=== PATIENT | female | born 1955 | race Hispanic/Latino ===

== ENCOUNTER → 2020-04-25 | Outpatient (CLI) | payer MEDICARE ==
--- NOTE | 2020-04-25 11:04 | Diagnostic Imaging Report ---
EXAM: [place] BARIUM ENEMA AIR AND BARIUM DOUBLE CONTRAST INDICATION: Incomplete colonoscopy. Tortuous sigmoid colon. COMPARISON: None available. TECHNIQUE: After insertion of the rectal tube barium was administered until the contrast reached the mid transverse colon. The barium within drain. Air was then manually insufflated in multiple different positions to allow for the double contrast evaluation of the lower GI tract. FINDINGS: MANAGER OF EXHIBITIONS AND COLLECTIONS: The bowel gas pattern is non-obstructive. RECTUM: Limited evaluation due to redundant nature. No definite large mucosal abnormality is noted. SIGMOID COLON: Difficult to evaluate due to significant redundancy and overlapping areas of contrast. ASCENDING, TRANSVERSE, AND DESCENDING COLON: Normally distensible with normal contours and mucosal pattern. Multifocal diverticuli of the sigmoid colon and distal descending colon are noted. A few scattered diverticula are also identified in the ascending colon and transverse colon. CECUM AND APPENDIX: Spot images were obtained. Normally distensible and demonstrates normal contours and mucosal pattern. Appendix is not confidently visualized however there is mild reflux into the terminal ileum Fluoroscopy Time: 5.82 minutes Radiation dose: 87.2 mGy IMPRESSION: 1. Diffuse colonic diverticulosis, most prominent at the sigmoid colon. 2. Significant redundancy within the sigmoid colon and rectum limiting evaluation. 3. No large mucosal mass within the ascending, transverse or descending colon. No ulceration or fistulous tract. Signed by: Eduin Servin MD on 04/25/2020 11:01 AM
== END ==
LOC: DX 08:23
PROVIDERS: ATTEND Internal Medicine Gastroenterology
DX: K31.89 Other diseases of stomach and duodenum (principal); K57.30 Diverticulosis of large intestine without perforation or abscess without bleeding
CPT/HCPCS: 74280

== ENCOUNTER → 2024-05-06 | Outpatient (REF) | payer MEDICARE ==
[~2024-05-06] MED LIST: IOPAMIDOL 370 MG/ML 100 ML INFUS..BTL INJ ONE
[2024-05-06 15:23] LABS: CREATININE, SERUM 0.97 mg/dL (0.57-1.11)
== END ==
LOC: CT 14:23
PROVIDERS: ATTEND Nurse Practitioner Family
DX: R10.84 Generalized abdominal pain (principal); K57.90 Diverticulosis of intestine, part unspecified, without perforation or abscess without bleeding; R19.8 Other specified symptoms and signs involving the digestive system and abdomen
CPT/HCPCS: 36415; 74177; 82565; 84520; Q9967